=== PATIENT | male | born 1970 | race Caucasian/White ===

== ENCOUNTER → 2017-04-30 | Outpatient (CLI) | payer OTHER ==
[2017-04-30 18:28] LABS: MEAN CORPUSCULAR HEMOGLOBIN 30.5 pg (27.0-33.0); MEAN CORPUSCULAR HGB CONC 34.8 g/dl (32.0-36.5); MEAN CORPUSCULAR VOLUME 87.6 fl (80.0-96.0); RED CELL DISTRIBUTION WIDTH 12.5 % (11.5-14.5)
[2017-04-30 18:46] LABS: ERYTHROCYTE SEDIMENTATION RATE 2 mm/hr (0-15)
[2017-04-30 18:56] LABS: ALBUMIN 3.9 GM/DL (3.2-5.2); ALBUMIN/GLOBULIN RATIO 1.39 (1.00-1.93); ALKALINE PHOSPHATASE 81 U/L (45-117); ALT/SGPT 43 U/L (12-78); ANION GAP 6 MEQ/L (8-16); AST/SGOT 19 U/L (15-37); BILIRUBIN,TOTAL 0.6 MG/DL (0.2-1.0); BLOOD UREA NITROGEN 14 MG/DL (7-18); CALCIUM LEVEL 8.5 MG/DL (8.5-10.1); CARBON DIOXIDE LEVEL 30 MEQ/L (21-32); CHLORIDE LEVEL 108 MEQ/L (98-107); CREATININE FOR GFR 1.05 MG/DL (0.70-1.30); FREE T4 0.78 NG/DL (0.76-1.46); GLOMERULAR FILTRATION RATE > 60.0 (>60); GLUCOSE, FASTING 75 MG/DL (70-105); POTASSIUM SERUM 4.4 MEQ/L (3.5-5.1); SODIUM LEVEL 144 MEQ/L (136-145); TOTAL PROTEIN 6.7 GM/DL (6.4-8.2)
[2017-04-30 19:14] LABS: EOSINOPHILS 4 % (0-5)
== END ==
LOC: M ADAMS 16:23
PROVIDERS: ATTEND Physician Assistant
DX: F41.1 Generalized anxiety disorder (principal)

== ENCOUNTER → 2017-11-20 | Outpatient (REF) | payer OTHER ==
[2017-11-20 15:35] LABS: INFLUENZA A AMPLIFICATION NEGATIVE (NEGATIVE); INFLUENZA B AMPLIFICATION NEGATIVE (NEGATIVE); RSV AMPLIFICATION NEGATIVE (NEGATIVE)
== END ==
LOC: M LAB REF 14:58
DX: J11.1 Influenza due to unidentified influenza virus with other respiratory manifestations (principal)

== ENCOUNTER 2018-01-20 09:25 | Emergency (ER) | payer OTHER ==
[2018-01-20] MEDS: KETOROLAC 60 MG/2 ML VIAL (J1885) IM (09:45)
[2018-01-20] MEDS: TAMSULOSIN 0.4 MG CAP PO (09:50)
[2018-01-20] MEDS: PERCOCET 5MG/325MG TAB PO (09:51)
== END 2018-01-20 10:46 | disposition home or self-care (01) ==
LOC: M ED 09:25
DX: N20.0 Calculus of kidney (principal)
CPT/HCPCS: J1885

== ENCOUNTER → 2018-10-28 | Outpatient (REF) | payer OTHER ==
[~2018-10-28] MED LIST: FLOM0.4C39 PO; MACR100C43 PO; PERC5TAB12 PO
[2018-10-28 19:50] LABS: INFLUENZA A AMPLIFICATION POSITIVE (NEGATIVE); INFLUENZA B AMPLIFICATION NEGATIVE (NEGATIVE)
== END ==
LOC: M LAB REF 12:23
PROVIDERS: ATTEND Physician Assistant Medical
DX: J11.1 Influenza due to unidentified influenza virus with other respiratory manifestations (principal)

== ENCOUNTER 2020-07-06 13:35 | Day surgery (SDC) | payer OTHER ==
[~2020-07-06] VITALS: Ht 177.8 cm; Wt 97.6 kg
[2020-07-06 14:28] LABS: BASO % 0.3 % (0.0-1.0); EOS # 0.1 10^3/uL (0.0-0.5); EOS % 1.1 % (0.0-3.0); HEMATOCRIT 45.9 % (42.0-52.0); HEMOGLOBIN 15.2 g/dl (13.5-17.5); LYMPH # 1.9 10^3/uL (1.5-5.0); LYMPH % 25.7 % (24.0-44.0); MEAN CORPUSCULAR HEMOGLOBIN 29.1 pg (27.0-33.0); MEAN CORPUSCULAR HGB CONC 33.1 g/dl (32.0-36.5); MEAN CORPUSCULAR VOLUME 87.8 fl (80.0-96.0); MONO # 0.8 10^3/uL (0.0-0.8); MONO % 10.4 % (0.0-5.0); NEUTROPHILS # 4.5 10^3/uL (1.5-8.5); NEUTROPHILS % 62.2 % (36.0-66.0); PLATELET COUNT, AUTOMATED 239 10^3/uL (150-450); RED BLOOD COUNT 5.23 10^6/uL (4.30-6.10); WHITE BLOOD COUNT 7.2 10^3/uL (4.0-10.0)
[2020-07-06] MEDS ORDERED: ISOVUE-370 76% 100ML VIAL As Ordered ONE (14:37)
[2020-07-06 14:52] LABS: ALBUMIN 3.8 GM/DL (3.2-5.2); BILIRUBIN,DIRECT 0.2 MG/DL (0.0-0.2); TOTAL PROTEIN 7.2 GM/DL (6.4-8.2)
[2020-07-06] MEDS: NS 1,000 ML IV SCH ×2 (15:57→16:23)
--- NOTE | 2020-07-06 16:10 | REPVR ---
PROCEDURE INFORMATION: Exam: CT Abdomen And Pelvis With Contrast Exam date and time: 07/06/2020 2:42 PM Age: 50 years old Clinical indication: Abdominal pain; Generalized; Additional info: Abd pain TECHNIQUE: Imaging protocol: Computed tomography of the abdomen and pelvis with intravenous contrast. Radiation optimization: All CT scans at this facility use at least one of these dose optimization techniques: automated exposure control; mA and/or kV adjustment per patient size (includes targeted exams where dose is matched to clinical indication); or iterative reconstruction. Contrast material: ISOVUE 370; Contrast volume: 100 ml; Contrast route: INTRAVENOUS (IV); COMPARISON: CT ABD PELVIS W/O CONTRAST 01/20/2018 9:51 AM FINDINGS: Lungs: Included lung bases are clear. Liver: Normal. No mass. Gallbladder and bile ducts: Normal. No calcified stones. No ductal dilation. Pancreas: Normal. No ductal dilation. Spleen: Normal. No splenomegaly. Adrenals: Normal. No mass. Kidneys and ureters: Normal. No hydronephrosis. Stomach and bowel: There is moderate fluid and air in the stomach. Small amount of air is tract in rugal folds at the proximal lesser curvature. There is no bowel dilatation to indicate obstruction. No pneumatosis. There is questionable minimal fat stranding tracking along the ascending, transverse, and descending colon. Appendix: The appendix is again located inferior to the cecum but is now dilated, measuring up to 12 mm, with minimal adjacent fat stranding. There are small adjacent right lower quadrant reactive lymph nodes. Intraperitoneal space: Mild fat stranding along the ascending and transverse colon. No free air. No significant fluid collection. Vasculature: There are small bilateral pelvic phleboliths. Lymph nodes: There are small nonenlarged central and left mesenteric lymph nodes. There also tiny periaortic lymph nodes. There also small right lower quadrant lymph nodes. Bladder: Unremarkable as visualized. Reproductive: Unremarkable as visualized. Bones/joints: No acute osseous abnormality. There is moderate concave compression deformity of the superior endplate of L2 which is unchanged. Soft tissues: There is a small noninflamed fat containing umbilical hernia. IMPRESSION: 1. Findings consistent with appendicitis, with 12 mm dilated appendix inferior to the cecum with mild adjacent fat stranding and reactive lymph nodes. 2. Questionable minimal fat stranding along the ascending, transverse, and descending colon which may reflect minimal colitis. 3. Noninflamed fat containing umbilical and bilateral inguinal hernias. THIS REPORT CONTAINS FINDINGS THAT MAY BE CRITICAL TO PATIENT CARE. The findings were verbally communicated via telephone conference with CARLOS ALBERTO VAZQUEZ at 4:09 PM EDT on 07/06/2020. The findings were acknowledged and understood. Electronically signed by: Natasha Lawson On 07/06/2020 16:09:41 PM
[2020-07-06] MEDS ORDERED: PIPERACILLIN/TAZOBACTAM SOD 3.375 GM in D5W MINI-BAG PLUS 50 ML IV ONE (16:15)
[2020-07-06] MEDS ORDERED: BUPIVACAINE/EPIN 0.25% 30 ML VIAL As Ordered ONE (17:51)
[2020-07-06] MEDS ORDERED: LIDOCAINE 2% 100MG/5ML SDV (FOR ANES.) As Ordered ONE (18:04)
[2020-07-06] MEDS ORDERED: dexameTHASONE 4 MG/ML 1ML VIAL (J1100 PER 1MG) As Ordered ONE (18:04)
[2020-07-06] MEDS ORDERED: KETOROLAC 60MG 2ML VIAL As Ordered ONE (18:04)
[2020-07-06] MEDS ORDERED: MIDAZOLAM INJ 2MG/2ML VIAL (J2250 PER 1MG) As Ordered ONE (18:04)
[2020-07-06] MEDS ORDERED: METOCLOPRAMIDE INJ 10MG/2ML VIAL (J2765 PER 1) As Ordered ONE (18:04)
[2020-07-06] MEDS ORDERED: fentaNYL 250 MCG/5 ML INJECTION (J3010) As Ordered ONE (18:04)
[2020-07-06] MEDS ORDERED: ACETAMINOPHEN 1000MG 100ML IV BTL (OFIRMEV) (J0131 PER 10MG) As Ordered ONE (18:05)
[2020-07-06] MEDS ORDERED: SUGAMMADEX SODIUM 500 MG/5 ML VIAL (BRIDION) As Ordered ONE (18:05)
[2020-07-06] MEDS ORDERED: propofoL 200 MG/20 ML VIAL As Ordered ONE (18:05)
[2020-07-06] MEDS ORDERED: ROCURONIUM BROMIDE 50 MG/5 ML VIAL As Ordered ONE (18:05)
[2020-07-06] MEDS ORDERED: ONDANSETRON 4MG/2ML VIAL As Ordered ONE (18:05)
[2020-07-06] MEDS ORDERED: ONDANSETRON 4MG/2ML VIAL IV PRN ×2 (19:30→20:00)
[2020-07-06] MEDS ORDERED: NORCO, ANEXSIA 5/325MG TABLET (HYDROcodone/ACETAMINOPHEN) PO PRN (19:30)
[2020-07-06] MEDS ORDERED: MORPHINE 2 MG/ML 1ML VIAL (J2270) IV PRN (19:30)
[2020-07-06] MEDS ORDERED: MEPERIDINE INJ 25 MG/ML VIAL (J2175) IV PRN (20:00)
[2020-07-06] MEDS ORDERED: METOCLOPRAMIDE INJ 10MG/2ML VIAL (J2765 PER 1) IV PRN (20:00)
[2020-07-06] MEDS ORDERED: PERCOCET 5MG/325MG TAB PO PRN (20:00)
[2020-07-06] MEDS ORDERED: fentaNYL 100 MCG/2 ML INJECTION (J3010) IV PRN (20:00)
[2020-07-06] MEDS ORDERED: LR 1,000 ML IV SCH (20:00)
[2020-07-06 20:13] VITALS: BP 118/78
[2020-07-06] MEDS: D5W/LR 1,000 ML IV SCH (20:35)
[2020-07-06 20:45] VITALS: BP 117/75
[2020-07-06 21:15] VITALS: BP 115/73
[2020-07-06] MEDS: PIPERACILLIN/TAZOBACTAM SOD 3.375 GM in D5W MINI-BAG PLUS 50 ML IV SCH (22:04)
[2020-07-06 22:15] VITALS: BP 130/90
[2020-07-06 23:15] VITALS: BP 114/73
[2020-07-06] MEDS: KETOROLAC 30 MG/ML 1ML VIAL IV SCH (23:23)
[2020-07-07 00:15] VITALS: BP 116/74
[2020-07-07 01:15] VITALS: BP 116/60
[2020-07-07 02:00] VITALS: BP 115/58
[2020-07-07] MEDS: PIPERACILLIN/TAZOBACTAM SOD 3.375 GM in D5W MINI-BAG PLUS 50 ML IV SCH ×2 (04:40→09:35)
[2020-07-07] MEDS: KETOROLAC 30 MG/ML 1ML VIAL IV SCH ×2 (05:12→11:29)
[2020-07-07 06:00] VITALS: BP 112/58
[2020-07-07] MEDS: D5W/LR 1,000 ML IV SCH (06:00)
[2020-07-07] MEDS ORDERED: PANTOPRAZOLE 40MG VIAL (C9113 PER 1) IV SCH (09:00)
[2020-07-07 10:00] VITALS: BP 104/63
--- NOTE | 2020-08-26 07:49 | RO ---
DATE OF OPERATION: 07/06/2020 PREOPERATIVE DIAGNOSIS: Acute appendicitis. POSTOPERATIVE DIAGNOSIS: Acute appendicitis. PROCEDURE: Laparoscopic appendectomy. SURGEON: Huan Bravo M.D. ANESTHESIA: General endotracheal anesthesia. ESTIMATED BLOOD LOSS: Minimal. FLUIDS: Crystalloid. BRIEF PROCEDURE SUMMARY: The patient was brought to the operating room and was given general anesthesia. After adequate anesthesia and preoperative antibiotics were given, the patient was prepped and draped in the usual sterile fashion. Next, a supraumbilical incision was made with the skin knife. Blunt dissection was carried down to the fascia. The fascia was entered with a Veress needle and insufflated to 15 mm of pressure. A dilating 12-mm trocar was placed, and under direct visualization, suprapubic and left lower quadrant 5-mm trocars were placed. The patient was placed in Trendelenburg, left side down position. The appendix was dissected out using a combination of blunt dissection and the Harmonic scalpel. Eventually, this was mobilized nicely and the mesentery of the appendix was taken with the Harmonic scalpel all the way to the cecal wall. Then, the base of the appendix was transected using an Endo-MARINA and this was placed in an EndoCatch bag. The right lower quadrant was copiously irrigated until clear. The EndoCatch bag was removed and all trocars were removed under direct visualization. Then, 0-Vicryl was used to close the fascia at the umbilicus. All incisions were closed with 4-0 Vicryl. Steri-Strips and a dry sterile dressing were applied. The patient was awakened, extubated, and brought to the recovery room awake, alert, and hemodynamically stable. Sponge and needle counts were correct x2. MTDD
== END 2020-07-07 12:34 | disposition home or self-care (01) ==
LOC: M ED 13:35 → M SDC 17:00 → ENRESERV 19:42 → M MSPAV 20:17 → M SDC 07-07 12:34
PROVIDERS: ATTEND Surgery
DX: K35.890 Other acute appendicitis without perforation or gangrene (principal)
CPT/HCPCS: 44970; 74177; 80047; 80076; 83690; 85025; 88304; 96361; 96365; 96366; 96375; 96376; 99284; C9113; J0131; J1100; J1885; J2250; J2405; J2543; J2765; J3010; Q9967; U0002